=== PATIENT | female | born 1950 | race Caucasian/White ===

== ENCOUNTER 2019-05-09 21:23 | Observation (INO) | payer OTHER, SELFPAY ==
[2019-05-09 21:36] VITALS: BP 156/75; PULSE 80; RESP 20; TEMP 36.8; O2SAT 100; BMI 18.8
[2019-05-09] MEDS: ONDANSETRON 4 MG/2 ML INJ IV (21:59)
[2019-05-09] MEDS: KETOROLAC 60 MG/2 ML VIAL 15 MG IV (22:00)
[2019-05-09] MEDS: SODIUM CHLORIDE 0.9% 1,000 ML 150 ML IV (22:00)
[2019-05-09 22:04] LABS: Add Manual Diff / Slide Review NO; Basophils Absolute Auto 100 /uL (0-100); Basophils Percent Auto 0.7 % (0-2); Eosinophils Absolute Auto 100 /uL (0-450); Hematocrit 38.8 % (36-46); Lymphocytes Absolute Auto 900 /uL (1100-4500); Lymphocytes Percent Auto 10.4 % (25-40); Mean Corpuscular HGB Conc 33.6 % (30-36); Mean Corpuscular Hemoglobin 30.9 PG (26-34); Monocytes Absolute Auto 100 /uL (0-900); Monocytes Percent Auto 1.2 % (3-14); Neutrophils Absolute Auto 7700 /uL (1500-7000); Neutrophils Percent Auto 86.7 % (50-75); Platelet Count 226 X10^3/uL (150-400); Red Blood Cell Count 4.21 X10^6/uL (4.0-5.2); White Blood Cell Count 8.9 X10^3/uL (4.5-11.0)
[2019-05-09 22:07] VITALS: BP 134/78; PULSE 76; RESP 15; O2SAT 100
[2019-05-09 22:07] LABS: Alanine Aminotransferase 139 IU/L (9-52); Albumin 4.4 g/dL (3.5-5.0); Albumin Globulin Ratio 1.6 (1.0-2.8); Alkaline Phosphatase 162 U/L (38-126); Aspartate Aminotransferase 213 IU/L (14-36); BUN Creatinine Ratio 22.9 (6-22); Bilirubin Total 1.1 mg/dL (0.2-1.3); Blood Urea Nitrogen 16 mg/dL (7-17); Calcium 9.4 mg/dL (8.4-10.2); Carbon Dioxide 25 mmol/L (22-32); Chloride 103 mmol/L (98-107); Estimated Glomerular Filt Rate > 60.0 mL/min (>60); Globulin 2.8 g/dL (1.7-4.1); Glucose 140 mg/dL (80-110); HEMOLYSIS < 15 (0-50); Lipase 86 U/L (23-300); Potassium 3.5 mmol/L (3.4-5.1); Sodium 138 mmol/L (137-145); Total Protein 7.2 g/dL (6.3-8.2)
--- NOTE | 2019-05-09 23:17 | ED.ABDPAIN ---
HPI - Abdominal Pain General Chief Complaint: Abdominal Pain Stated Complaint: abdominal pain Time Seen by Provider: 05/09/19 23:14 Source: patient Mode of arrival: Ambulatory Limitations: no limitations History of Present Illness HPI narrative: Patient is a 69-year-old female who presents with epigastric pain and right upper quadrant pain. She says it started yesterday she has been feeling nauseous today. Pain has gotten worse. She has not had any fever or chills. She denies any diarrhea. Pain sometimes does radiate up into her chest. But mostly remains in her epigastric area on sometimes does go through to her back. Location: RUQ and epigastric Severity: moderate Radiation: back Migration to: no migration Related Data Home Medications Medication Instructions Recorded Confirmed fluvoxamine 150 mg PO DAILY 05/10/19 05/10/19 gabapentin 400 mg PO DAILY 05/10/19 05/10/19 pramipexole 0.5 mg PO DAILY 05/10/19 05/10/19 Allergies Allergy/AdvReac Type Severity Reaction Status Date / Time No Known Drug Allergies Allergy Verified 05/09/19 21:39 Review of Systems Review of Systems ROS Unobtainable: All systems reviewed & are unremarkable except as noted in HPI and below Constitutional Constitutional: Denies chills, Denies fever(s), Denies lethargy and Denies weakness Eyes Eyes: Denies change in vision, Denies eye discharge, Denies irritation and Denies loss of vision ENT Ears, Nose, Mouth, and Throat: Denies change in voice, Denies neck pain and Denies sore throat Cardiovascular Cardiovascular: Denies chest pain, Denies irregular heart rhythm, Denies lightheadedness, Denies palpitations, Denies dyspnea, Denies dyspnea on exertion and Denies orthopnea Respiratory Respiratory: Denies cough, Denies dyspnea, Denies dyspnea on exertion and Denies wheezing Gastrointestinal Gastrointestinal: Reports as per HPI Genitourinary Genitourinary: Denies hematuria, Denies flank pain, Denies urinary incontinence and Denies urinary urgency Musculoskeletal Musculoskeletal: Denies neck pain Integumentary/Breasts Skin/Breast: Denies pruritus, Denies erythema, Denies rash and Denies wounds Neurologic Neurologic: Denies loss of vision and Denies weakness Endocrine Endocrine: Denies palpitations Allergic/Immunologic Allergic/Immunologic: Denies wheezing [facility] Social History Smoking Status: Never smoker Social History Smoking Status: Never smoker Exam Initial Vital Signs Initial Vital Signs: Vital Signs Temperature 98.2 F 05/09/19 21:36 Pulse Rate 80 05/09/19 21:36 Respiratory Rate 20 05/09/19 21:36 Blood Pressure 156/75 H 05/09/19 21:36 Pulse Oximetry 100 05/09/19 21:36 GENERAL: Pleasant well-appearing female. HEENT: Head atraumatic,EOMI, pupils reactive, face symmetric CARDIOVASCULAR: Regular rate and rhythm without murmurs, rubs or gallops. RESPIRATORY: Breath sounds equal bilaterally, no wheezes rales or rhonchi. ABDOMEN: Soft, mild epigastric pain all positive right upper quadrant pain no guarding or rebound EXTREMITIES: Normal range of motion, no clubbing or edema. Neurovascularly intact NEUROLOGICAL: Alert and oriented x4.Normal gait and speech. Cranial nerves II through XII grossly intact. SKIN: Warm, dry, no laceration, no petechiae, no rashes or lesions. Course Orders Ordered: ED Orders 05/09/19 21:50 Complete Blood Count AUTO DIFF Stat Comprehensive Metabolic Panel Stat Lipase Stat Troponin & CK Cardiac Panel Stat 05/09/19 23:21 US abdomen limited Stat Sodium Chloride (Normal Saline 0.9%) 1,000 mls @ 150 mls/hr IV CONT ANIA Last Infusion: 05/10/19 01:01 Dose: 0 mls/hr Documented by: Admin: 05/09/19 22:00 Dose: 150 mls/hr Documented by: GREG Sodium Chloride (Normal Saline 0.9%) 1,000 mls @ 125 mls/hr IV CONT ANIA Last Infusion: 05/10/19 02:29 Dose: 125 mls/hr Documented by: Admin: 05/10/19 01:56 Dose: 125 mls/hr Documented by: CLARISSA Ampicillin Sodium/Sulbactam (Sodium 3 gm/ Sodium Chloride) 100 mls @ 100 mls/hr IV Q6H [facility] Morphine Sulfate (Morphine) 2 mg IV Q4HR PRN PRN Reason: Pain, Moderate (4-6) Ondansetron HCl (Zofran) 4 mg IV Q4HR PRN PRN Reason: Nausea And Vomiting Discontinued Medications Ketorolac Tromethamine (Toradol) 15 mg IV NOW ONE Stop: 05/09/19 21:55 Last Admin: 05/09/19 22:00 Dose: 15 mg Documented by: GREG Ondansetron HCl (Zofran) 4 mg IV NOW ONE Stop: 05/09/19 21:55 Last Admin: 05/09/19 21:59 Dose: 4 mg Documented by: GREG Consultations Consultation #1: Discussed case with surgery, Dr. Chaves, updated on patient's symptoms test results including and slightly dilated common bile duct 11 mm normal bilirubin elevated LFTs is normal lipase. States patient can be discharged home with close outpatient follow up in clinic next week or admission is for surgery tomorrow. Patient opted for admission and surgery tomorrow. He requested Unasyn NPO IV fluids pain medicine. Time: 00:48 Vital Signs Vital signs: Vital Signs - 8 hr 05/09/19 21:36 05/09/19 22:07 05/09/19 23:56 Temperature 98.2 F Pulse Rate 80 76 47 L Respiratory Rate 20 15 18 Blood Pressure 156/75 H Blood Pressure [Left Arm] 134/78 133/60 Pulse Oximetry 100 100 98 MDM - Abdominal Pain Lab Data Attestation: I reviewed the patient's lab results. Result diagrams: 05/09/19 21:50 05/09/19 21:50 Labs: Lab Results 05/09/19 05/09/19 05/09/19 Range/Units 21:50 21:50 21:50 WBC 8.9 (4.5-11.0) X10^3/uL RBC 4.21 (4.0-5.2) X10^6/uL Hgb 13.0 (12.0-16.0) g/dL Hct 38.8 (36-46) % MCV 92.0 (80-100) fL MCH 30.9 (26-34) PG MCHC 33.6 (30-36) % RDW 13.0 (11.6-14.8) % Plt Count 226 (150-400) X10^3/uL Neut % (Auto) 86.7 H (50-75) % Lymph % (Auto) 10.4 L (25-40) % [place] % (Auto) 1.2 L (3-14) % Eos % (Auto) 1.0 L (2-4) % Baso % (Auto) 0.7 (0-2) % Neut # (Auto) 7700 H (1955-8919) /uL Lymph # (Auto) 900 L (9455-8540) /uL [place] # (Auto) 100 (0-900) /uL Eos # (Auto) 100 (0-450) /uL Baso # (Auto) 100 (0-100) /uL Sodium 138 (137-145) mmol/L Potassium 3.5 (3.4-5.1) mmol/L Chloride 103 (98-107) mmol/L Carbon Dioxide 25 (22-32) mmol/L BUN 16 (7-17) mg/dL Creatinine 0.70 (0.52-1.04) mg/dL Estimated GFR > 60.0 (>60) mL/min BUN/Creatinine Ratio 22.9 H (6-22) Glucose 140 H (80-110) mg/dL Calcium 9.4 (8.4-10.2) mg/dL Total Bilirubin 1.1 (0.2-1.3) mg/dL AST 213 H (14-36) IU/L ALT 139 H (9-52) IU/L Alkaline Phosphatase 162 H (38-126) U/L Total Creatine Kinase 88 (30-135) U/L CK-MB (CK-2) TNP CK-MB (CK-2) Rel Index TNP Troponin I < 0.012 (0.01-0.034) ng/mL Total Protein 7.2 (6.3-8.2) g/dL Albumin 4.4 (3.5-5.0) g/dL Globulin 2.8 (1.7-4.1) g/dL Albumin/Globulin Ratio 1.6 (1.0-2.8) Lipase 86 (23-300) U/L Point of care testing: Urine Dip Bedside Urine Glucose Negative Bedside Urine Bilirubin - Negative Bedside Urine Ketone - Negative Urine Specific [place] 1.015 Bedside Urine Occult Blood - Negative Bedside Urine pH 6.5 Bedside Urine Protein - Negative Bedside Urine Urobilinogen - Negative Bedside Urine Nitrite - Negative Bedside Urine Leukocytes - Negative Esterase Imaging Data US - abdomen: Radiologist's impression: second shift supervisor report: No evidence for acute cholecystitis there is cholelithiasis present. Biliary ductal dilatation it as described 11 mm. No gross choledocholithiasis. Should clinical concern persists MRCP would be helpful for more definitive assessment. ECG Data Attestation: I personally reviewed and interpreted this ECG as follows: Prior ECG tracings: not available for review Interpretation: Normal sinus rhythm rate 81 p.r. interval [address] changes no T-wave inversions artifact noted. MDM Narrative Medical decision making narrative: Patient has normal bilirubin normal lipase the elevated LFTs with cholelithiasis on ultrasound. She has no leukocytosis or fever. Discussed case with surgery, agrees with admission for surgery tomorrow. Patient's pain overall significantly improved with Toradol. She was asking to go home however it did start to come back a little. Discharge Plan Departure Patient Disposition: Admitted as Observation Clinical Impression: Cholelithiasis Qualifiers: Cholelithiasis location: gallbladder Cholecystitis presence: without cholecystitis Biliary obstruction: without biliary obstruction Qualified Code(s): K80.20 - Calculus of gallbladder without cholecystitis without obstruction Discharge Date/Time: 05/10/19 02:31 Admit Date/Time: 05/10/19 01:41 Admit Provider: Severino Chaves
--- NOTE | 2019-05-09 23:21 | DI.US.S_ITS ---
PROCEDURE: US ABDOMEN LIMITED INDICATIONS: RIGHT UPPER QUADRANT PAIN TECHNIQUE: Real-time focused scanning was performed of the abdomen, with image documentation. COMPARISON: None. FINDINGS: Numerous tiny mobile gallstones are seen. The gallbladder wall is not thickened, measuring 3 mm or less. No specific pericholecystic fluid is seen. The sonographic Gonzalez sign is negative. Biliary dilatation is seen, with the common bile duct measuring 11 mm. The pancreas is not well-seen. The liver is normal in size and demonstrates no focal lesions. IMPRESSION: Numerous tiny mobile gallstones are seen, without additional sonographic signs of cholecystitis. Dilated common bile duct at 11 mm. As clinically appropriate, an MRCP could be considered for further evaluation (assuming that there is no contraindication to MRI). Note: No significant discrepancy from the preliminary report. Dictated by: Charles Correa M.D. on 05/10/2019 at 6:16 Approved by: Charles Correa M.D. on 05/10/2019 at 6:17
[2019-05-09 23:46] LABS: Creatine Kinase 88 U/L (30-135)
[2019-05-09 23:56] VITALS: BP 133/60; PULSE 47; RESP 18; O2SAT 98
[2019-05-09 23:59] LABS: Troponin I < 0.012 ng/mL (0.01-0.034)
[2019-05-10] VITALS (14 sets, daily range): BP systolic 90–160; BP diastolic 46–73; PULSE 55–98; RESP 14–20; TEMP 36.8–37.5; O2SAT 93–100; BMI 18.8
--- NOTE | 2019-05-10 | PATH_ITS ---
[facility] Accession Number: [id number] . 01 Material submitted: . gallbladder - GALLBLADDER . 01 Clinical history: . ABDOMINAL PAIN . 02 Diagnosis: Gallbladder, Cholecystectomy: Mild chronic cholecystitis, cholesterolosis, and cholelithiasis. MRV 05/14/2019 1332 Local . 02 Electronically signed: . Muna Wellington MD, Pathologist NPI- [id number] . 01 Gross description: . Received in formalin, labeled gallbladder, is an intact gallbladder (length-11.5 cm, diameter-3.5 cm) with green smooth and shiny serosa and a patent cystic duct. No lymph nodes are identified. The lumen contains green-brown viscous bile and multiple dark green gritty friable calculi (1.3 x 0.3 x 0.2 cm in aggregate). The mucosa is brown-green smooth and flat. The wall is up to 0.1 cm thick. No nodules, masses or lesions are identified. Section code: (A1) cystic duct resection margin and two serial sections from the body; (A2) two longitudinal sections from the fundus. ([id number]) /[facility] 05/12/2019 1908 Local . 02 Pathologist provided ICD-10: K81.1, K80.70 . 02 CPT . 732370 Performed at: 01 [facility] [address], [place], [place] [id number] MD Christiano Oden MD Phone: [phone] Performed at: 02 [facility] [address] [place], [place] [id number] MD Betsy Mercado MD Phone: [phone]
[2019-05-10] MEDS: SODIUM CHLORIDE 0.9% 1,000 ML 125 ML IV (01:56)
--- NOTE | 2019-05-10 03:04 | PC.NURSE ---
Bilingual Instructor Note: 0245: Admitted to acute care room 217 from ER. Pt is alert, oriented X3. IV is in place in rt AC with NS infusing at 125cc/hr. Pt states her pain level is 1/10 at this time. Pt is NPO.
[2019-05-10] MEDS: AMPICILLIN/SULBACTAM 3 GM 3 GM in SODIUM CHLORIDE 0.9% 100 ML IV (05:23)
--- NOTE | 2019-05-10 07:39 | PM.HP.1 ---
History of Present Illness History of Present Illness Date Patient Seen: 05/10/19 Time Patient Seen: 07:39 Chief complaint: abdominal pain Narrative: Patient comes emergency room round midnight with 2 day history of right subcostal pain nausea vomiting ultrasound confirmation of coli cystitis with cholelithiasis mild elevation of her LFTs. Normal bilirubin. White count not elevated. Patient History Social History Smoking Status: Never smoker Family & Social History Safety & Behavioral: Feels Safe in Current Yes Environment Tobacco & Substance use: Smoking Status Never smoker alcohol intake frequency 0-2 drinks per day Substance Use Type does not use Meds Home Medications and Allergies Home Medications Medication Instructions Recorded Confirmed Type fluvoxamine 150 mg PO DAILY 05/10/19 05/10/19 History gabapentin 400 mg PO DAILY 05/10/19 05/10/19 History pramipexole 0.5 mg PO DAILY 05/10/19 05/10/19 History Allergies Allergy/AdvReac Type Severity Reaction Status Date / Time No Known Drug Allergies Allergy Verified 05/09/19 21:39 Review of Systems Review of Systems ROS Unobtainable: All systems reviewed & are unremarkable except as noted in HPI and below Exam Vital Signs (past 8 hours): - 05/09/19 23:56 05/10/19 02:03 05/10/19 02:30 Temperature 99.5 F Pulse Rate 47 L 98 H 94 H Respiratory Rate 18 16 18 Blood Pressure 110/46 L Blood Pressure [Left Arm] 133/60 99/59 L Pulse Oximetry 98 97 97 Oxygen Delivery Method Room Air Oxygen Flow Rate 0 Narrative Exam Narrative: Temperature is 99.5? patient complaining of right subcostal pain. Nausea but no vomiting at this time. Lungs are clear with no rales or wheezes distant breath sounds Heart regular rhythm no murmur Abdomen not distended. She has right subcostal tenderness no masses palpable. No organomegaly. Objective Labs Result Diagrams: 05/09/19 21:50 05/09/19 21:50 Labs: Laboratory Results - last 24 hr 05/09/19 05/09/19 05/09/19 21:50 21:50 21:50 WBC 8.9 RBC 4.21 Hgb 13.0 Hct 38.8 MCV 92.0 MCH 30.9 MCHC 33.6 RDW 13.0 Plt Count 226 Neut % (Auto) 86.7 H Lymph % (Auto) 10.4 L [place] % (Auto) 1.2 L Eos % (Auto) 1.0 L Baso % (Auto) 0.7 Neut # (Auto) 7700 H Lymph # (Auto) 900 L [place] # (Auto) 100 Eos # (Auto) 100 Baso # (Auto) 100 Sodium 138 Potassium 3.5 Chloride 103 Carbon Dioxide 25 BUN 16 Creatinine 0.70 Estimated GFR > 60.0 BUN/Creatinine Ratio 22.9 H Glucose 140 H Calcium 9.4 Total Bilirubin 1.1 AST 213 H ALT 139 H Alkaline Phosphatase 162 H Total Creatine Kinase 88 CK-MB (CK-2) TNP CK-MB (CK-2) Rel Index TNP Troponin I < 0.012 Total Protein 7.2 Albumin 4.4 Globulin 2.8 Albumin/Globulin Ratio 1.6 Lipase 86 Assessment & Plan Assessment & Plan narrative: Patient with acute cholecystitis cholelithiasis admitted around midnight last night will have a laparoscopic cholecystectomy this Saturday morning. I have explained the nature of the procedure the patient and her the understand and have no further questions which are not answered.
[2019-05-10] MEDS: APREPITANT 40 MG CAPSULE PO (07:55)
[2019-05-10] MEDS: LACTATED RINGERS 1,000 ML 42 ML IV (07:55)
--- NOTE | 2019-05-10 07:56 | PC.NURSE ---
Patient reports she did not eat or drink anything overnight. No pain at this time. Signed consent with the surgeon and at bedside. Picked up by surgery team at this time.
--- NOTE | 2019-05-10 08:41 | SUR.OPER ---
Supine on padded OR bed, head on pillow, arms secured on padded arm boards at <90 degrees abduction, legs uncrossed, safety belt at thigh, tape over blanket over lower legs.
[2019-05-10] MEDS: BUPIVACAINE 0.5% W/ EPI (PF) VIAL 30 ML INJ (08:45)
[2019-05-10] MEDS: BACITRACIN OINT 0.9 GM PCKT 1 APPLIC TOP (08:46)
--- NOTE | 2019-05-10 08:50 | SUR.OPER ---
WEDDING BAND SECURED ON LEFT RING FINGER
--- NOTE | 2019-05-10 09:12 | PM.OP.1 ---
Operative Date/Time/Diagnoses Date of procedure: 05/10/19 Time of procedure: 09:13 Pre-op diagnosis: Acute on chronic cholecystitis with cholelithiasis Post-op diagnosis: same Procedure & Clinicians Procedure: Laparoscopic cholecystectomy Same procedure as scheduled: Yes Surgeon: Severino Chaves Click Yes if Unassisted: Yes Anesthesia Type: General Operative Notes Findings: The patient had any damages gallbladder with chronic inflammatory changes. The edematous changes were evidence of acute cholecystitis. Closure Type: primary Specimen(s): other (Gallbladder and stones) Estimated Blood Loss (mL): 50 Blood products transfused: none Procedure in detail: The patient was properly identified during surgical pause. Given a general endotracheal anesthetic prepped and draped sterile fashion exposure of the upper abdomen. 5 mm incision made to the right of the umbilicus using an Opti View direct vision port direct entry in the peritoneal cavities was achieved using the laparoscoped and there was no evidence of visceral injury. Pneumoperitoneum safely established. Three right subcostal ports were all placed under direct vision. The gallbladder was elevated it was edematous acutely inflamed with chronic adhesions from the right colon to the wall of the gallbladder. These adhesions were taken down bluntly with minimal bleeding. Gallbladder was then further elevated and the cholecystoduodenal ligament dissected and the critical view of Calot's triangle clearly showing cystic duct Calot's node cystic artery and the right hepatic artery. The cystic duct was closed with multiple clips divided leaving several with the patient there was no bile leak the cystic artery was closed with multiple clips divided leaving several with the patient there was no bleeding. Gallbladder was then elevated further. Dissection proceeded using the Bovie electric cautery dividing the edematous serosa and removing the gallbladder from the liver bed. There was meticulous hemostasis. Gallbladder and its contents removed. Operative site irrigated with a L of sterile saline aspirated dry there was no bleeding no bile leak. Trocars removed under direct vision there was no bleeding. Skin stapled sterile dressings applied procedures well tolerated. Complications: none Post-operative Condition: stable Disposition: PACU
--- NOTE | 2019-05-10 09:26 | SUR.PHASEI ---
0968 Pt arrived in sinus rhythm, converted to bigeminy, rhythm strip shown to Dr. Florez - no orders. Pt. now has converted back to sinus rhythm in the low 70's. Assymptomatic, also denies pain/nausea. Dr. Lugo spoke with patient.
--- NOTE | 2019-05-10 09:46 | SUR.PHASEI ---
0935 to room 217, bed down and locked, call light within reach, SCDs on. denies pain/nausea; report given, VSS, spouse at bedside. Continues to wear yellow ring/band. Dressings unchanged, belly remains soft. no questions/concerns.
--- NOTE | 2019-05-10 09:59 | PC.NURSE ---
Addendum entered by Mega Abreu R.N. 05/10/19 13:56: Patient assisted to walk in hallways, tolerated well, denies n/v, dizziness or lightheadedness, dressings remain intact. Patient noted some mild to moderate discomfort on right side and abdomen, medicated with percocet as ordered and patient tolerating well at this time. Smiling and conversant, tolerating liquids. Continue to monitor. Original Note: Patient arrived from PACU, axox3, VSS, denies pain. [address] to abdomen covered in gauze with tegaderm dressings, small spot of blood less than dime sized noted on far right dressing. Continue to monitor.
[2019-05-10] MEDS: OXYCODONE/ACETAMINOPHEN 5/325 TABLET 1 TAB PO (12:20)
[2019-05-10] MEDS: GABAPENTIN 300 MG CAPSULE PO (12:20)
--- NOTE | 2019-05-10 12:33 | CM.DANOTE ---
DCP: Case received, EMR reviewed and met with patient. Introduced self and role. , Cirilo, at bedside. Was able to obtain baseline health and activity level from patient. DCP assessment/template completed with information currently available. Patient is a 69 year old female who admitted early this morning to the care of the surgical team. PCP: Dr. Roe at [facility] Payer: confirmed; [employer]. Patient came to the hospital secondary to epigastric pain. Patient noted to have cholecystitis. Patient had a laparoscopic choleysectomy this morning. Met with patient after surgery, , Cirilo, in room. Patient alert and oriented. Lives in [place] with her , and is independent. P: DCP to continue to follow. Patient should be able to go home when she is medically stable. Bety Julian RN/Vest Maker
--- NOTE | 2019-05-10 14:19 | PM.DS.1 ---
History of Present Illness History of Present Illness Date Patient Seen: 05/10/19 Time Patient Seen: 14:19 Chief complaint: abdominal pain Narrative: Patient comes emergency room round midnight with 2 day history of right subcostal pain nausea vomiting ultrasound confirmation of coli cystitis with cholelithiasis mild elevation of her LFTs. Normal bilirubin. White count not elevated. Discharge Providers Provider Date of admission: 05/10/19 01:41 Discharge Date: 05/10/19 Discharge provider: Severino Chaves MD Summary Hospital Course Discharge Diagnosis: Acute on chronic cholecystitis with cholelithiasis Hospital Course: Patient was taken the operating theater this morning after being admitted in the middle night. She underwent laparoscopic cholecystectomy which was very well tolerated. She had acute on chronic cholecystitis with cholelithiasis. Since surgery today she has had minimal discomfort she is ambulating in the kc she is tolerating a diet and is having no nausea or vomiting. She is ready for discharge. She will resume her pre-admission medication no narcotics are prescribed. She will use Tylenol or ibuprofen for discomfort if she needs it. Status at Discharge Cognitive/behavioral status at discharge: oriented Functional status at discharge: independent ambulation Overall status at discharge: patient is back to baseline Time Spent with Patient Time spent: Less than 30 minutes Exam Vital Signs (past 8 hours): - 05/10/19 07:55 05/10/19 07:56 05/10/19 09:09 Temperature 98.8 F 98.8 F 98.3 F Pulse Rate 65 65 95 H Respiratory Rate 16 16 16 Blood Pressure 102/58 L 102/58 L 112/73 Pulse Oximetry 97 97 95 05/10/19 09:14 05/10/19 09:20 05/10/19 09:25 Temperature Pulse Rate 89 71 73 Respiratory Rate 14 14 20 Blood Pressure 115/63 90/58 L 125/69 Pulse Oximetry 97 95 100 05/10/19 09:30 05/10/19 09:47 05/10/19 10:24 Temperature 98.5 F 99.1 F Pulse Rate 74 69 70 Respiratory Rate 17 16 16 Blood Pressure 122/67 106/48 L 104/59 L Pulse Oximetry 100 96 93 05/10/19 10:45 05/10/19 11:34 05/10/19 11:45 Temperature 99 F 98.7 F Pulse Rate 57 L 55 L Respiratory Rate 16 16 Blood Pressure 98/54 L 160/62 H Pulse Oximetry 97 97 97 Oxygen Delivery Method Room Air Oxygen Flow Rate 2 Narrative Exam Narrative: Patient is resting comfortably in bed with absolutely no abdominal pain. Skin and sclerae are clear. She is afebrile. Abdomen is soft with minimal trocar site tenderness. Her dressings are dry and intact. Objective Labs Result Diagrams: 05/09/19 21:50 05/09/19 21:50 Labs: Laboratory Results - last 24 hr 05/09/19 05/09/19 05/09/19 21:50 21:50 21:50 WBC 8.9 RBC 4.21 Hgb 13.0 Hct 38.8 MCV 92.0 MCH 30.9 MCHC 33.6 RDW 13.0 Plt Count 226 Neut % (Auto) 86.7 H Lymph % (Auto) 10.4 L [place] % (Auto) 1.2 L Eos % (Auto) 1.0 L Baso % (Auto) 0.7 Neut # (Auto) 7700 H Lymph # (Auto) 900 L [place] # (Auto) 100 Eos # (Auto) 100 Baso # (Auto) 100 Sodium 138 Potassium 3.5 Chloride 103 Carbon Dioxide 25 BUN 16 Creatinine 0.70 Estimated GFR > 60.0 BUN/Creatinine Ratio 22.9 H Glucose 140 H Calcium 9.4 Total Bilirubin 1.1 AST 213 H ALT 139 H Alkaline Phosphatase 162 H Total Creatine Kinase 88 CK-MB (CK-2) TNP CK-MB (CK-2) Rel Index TNP Troponin I < 0.012 Total Protein 7.2 Albumin 4.4 Globulin 2.8 Albumin/Globulin Ratio 1.6 Lipase 86 Discharge Plan Discharge Plan Patient Disposition: Home Discharge Med Rec/Prescriptions Prescriptions: Continued gabapentin 400 mg capsule 400 mg PO DAILY RF: 0 pramipexole 0.5 mg tablet 0.5 mg PO DAILY RF: 0 fluvoxamine 100 mg tablet 150 mg PO DAILY RF: 0 Follow up/Referrals: Severino Chaves MD [Physician] - (call the offfice to have staple removal in about a week) Provider Discharge Instructions Diet: Diet as Tolerated Skin/Wound/Dressing Care Skin care: bathe normally, remove dressings in 2 days, redress as needed with bandaids Report to your healthcare provider any signs of infection, such as:: chills, fever, night sweats, increased pain, unusual drainage and unusual redness Visit Report/Discharge Packet Instructions: DI for Cholecystectomy Stand Alone Forms: Surgery Discharge Visit Report Forms: Patient Portal/API, Stroke Signs & Symptoms Discharge Data Attending Provider: Severino Chaves Admit Date/Time: 05/10/19 01:41
[2019-05-10] MEDS: KETOROLAC 30 MG/ML VIAL IV (14:51)
--- NOTE | 2019-05-10 15:37 | PC.NURSE ---
Patient given toradol as ordered and then IV removed, patient tolerated well. Dressings remain intact. Patient has no further questions or concerns and will call MD office tomorrow to ensure follow up schedule. Escorted out via wheelchair with all belongings to be discharged to home with .
== END 2019-05-10 15:15 | disposition home or self-care (01) ==
LOC: ED 05-10 00:52 → AC 05-10 01:42
PROVIDERS: Admitting Provider Surgery; Emergency Provider Emergency Medicine; Visit Provider Surgery
PROC: 0FT44ZZ Resection of Gallbladder, Percutaneous Endoscopic Approach (ICD-10-PCS; CPT 47562; principal; 2019-05-10 08:30)
DX: K80.12 Calculus of gallbladder with acute and chronic cholecystitis without obstruction (principal); R10.11 Right upper quadrant pain
CPT/HCPCS: 47562; 36415; 76705; 80053; 81003; 82550; 83690; 84484; 85025; 93005; 94762; 96361; 96365; 96375; 96376; 99284; 99285; G0378; J0295; J1100; J1885; J2250; J2405; J2704; J2710; J3010; J8501

== ENCOUNTER 2020-10-20 13:41 | Emergency (ER) | payer OTHER, SELFPAY ==
[2019-05-10 02:31] VITALS: BMI 18.8
[2020-10-20 13:49] VITALS: BP 139/77; RESP 24; TEMP 36.5; O2SAT 99
--- NOTE | 2020-10-20 14:21 | DI.RAD.S_ITS ---
PROCEDURE: XR CHEST 1V INDICATIONS: shortness of breath TECHNIQUE: One view of the chest was acquired. COMPARISON: None. FINDINGS: Surgical changes and devices: None. Lungs and pleura: Lungs are clear. No pleural effusions or pneumothorax. Mediastinum: Mediastinal contours appear normal. Heart size is normal. Bones and chest wall: No suspicious bony lesions. Overlying soft tissues appear unremarkable. IMPRESSION: No acute disease. Dictated by: Ankit Reese M.D. on 10/20/2020 at 15:48 Approved by: Ankit Reese M.D. on 10/20/2020 at 15:48
[2020-10-20 14:23] LABS: Add Manual Diff / Slide Review NO; Basophils Absolute Auto 100 /uL (0-100); Basophils Percent Auto 1.2 % (0-2); Eosinophils Absolute Auto 100 /uL (0-450); Eosinophils Percent Auto 1.1 % (2-4); Hematocrit 36.8 % (36-46); Hemoglobin 12.5 g/dL (12.0-16.0); Lymphocytes Absolute Auto 1700 /uL (1100-4500); Lymphocytes Percent Auto 28.1 % (25-40); Mean Corpuscular Hemoglobin 31.4 PG (26-34); Mean Corpuscular Volume 92.3 fL (80-100); Monocytes Absolute Auto 600 /uL (0-900); Monocytes Percent Auto 9.7 % (3-14); Neutrophils Absolute Auto 3600 /uL (1500-7000); Neutrophils Percent Auto 59.9 % (50-75); Platelet Count 274 X10^3/uL (150-400); Red Blood Cell Count 3.99 X10^6/uL (4.0-5.2); Red Cell Distribution Width 11.9 % (11.6-14.8)
[2020-10-20] MEDS: SODIUM CHLORIDE 0.9% 1,000 ML 250 ML IV (14:26)
[2020-10-20] MEDS: ONDANSETRON 4 MG/2 ML INJ IV (14:26)
[2020-10-20 14:30] LABS: INR 1.1 (0.9-1.3); Prothrombin Time 12.5 SECONDS (10.1-12.7)
[2020-10-20 14:33] LABS: PTT Partial Thromboplastin Tim 41 SECONDS (26.4-36.2)
[2020-10-20 14:46] LABS: Alanine Aminotransferase 21 IU/L (<35); Albumin 4.1 g/dL (3.5-5.0); Albumin Globulin Ratio 1.6 (1.0-2.8); Alkaline Phosphatase 62 U/L (38-126); Aspartate Aminotransferase 25 IU/L (14-36); Bilirubin Total 0.6 mg/dL (0.2-1.3); Blood Urea Nitrogen 17 mg/dL (7-17); Calcium 9.7 mg/dL (8.4-10.2); Carbon Dioxide 19 mmol/L (22-32); Chloride 106 mmol/L (98-107); Creatine Kinase 74 U/L (30-135); Estimated Glomerular Filt Rate > 60.0 mL/min (>60); Globulin 2.6 g/dL (1.7-4.1); Glucose 103 mg/dL (80-110); HEMOLYSIS < 15 (0-50); Lipase 42 U/L (23-300); Potassium 3.1 mmol/L (3.4-5.1); Sodium 137 mmol/L (137-145); Total Protein 6.7 g/dL (6.3-8.2)
[2020-10-20 14:56] LABS: NT-proBNP (BNP-Adult 18+) 254 pg/mL (<125)
[2020-10-20 14:57] LABS: Troponin I < 0.012 ng/mL (0.01-0.034)
--- NOTE | 2020-10-20 15:01 | ED.NAVMDI ---
HPI - Nausea/Vomiting/Diarrhea General Chief complaint: Nausea/Vomiting/Diarrhea Stated complaint: diarrhea,throwing up Time Seen by Provider: 10/20/20 14:19 Source: patient Mode of arrival: Ambulatory Limitations: no limitations History of Present Illness HPI Narrative: 70-year-old woman presents with nausea vomiting diarrhea along with dyspnea, the nausea and vomiting have been present for 48 hours.. She has had hot and cold flashes. Three episodes of emesis in the last 24 hours, similar frequency for diarrhea. Complains of no chest pain, palpitations or cough but has noted some right jaw pain. Related Data Home Medications Medication Instructions Recorded Confirmed fluvoxamine 150 mg PO DAILY 05/10/19 05/18/19 gabapentin 400 mg PO DAILY 05/10/19 05/18/19 pramipexole 0.5 mg PO DAILY 05/10/19 05/18/19 Allergies Allergy/AdvReac Type Severity Reaction Status Date / Time No Known Drug Allergies Allergy Verified 10/20/20 13:53 Review of Systems Review of Systems ROS Unobtainable: All systems reviewed & are unremarkable except as noted in HPI and below Patient History Surgical History History of cholecystectomy Social History Smoking Status: Never smoker Smoking Status: Never smoker alcohol intake frequency: 0-2 drinks per day Substance Use Type: does not use Exam Narrative Exam Narrative: General: Frail but in no acute distress. Able to give a complete and coherent history. Well-nourished well-developed HEENT: Moist mucous membranes, normal sclera with reactive pupils, Respiratory: Lungs are clear to auscultation, no wheezing no rales no rhonchi. Full and symmetrical air movement Cardiac: Regular rate and rhythm no murmurs no bruits Abdomen: Soft, nontender, good bowel tones, no flank pain Skin: Warm and dry, no rashes Neurologic: Grossly neurologically intact with no obvious asymmetries or abnormalities Extremities: No trauma, well perfused Psych: Cooperative, appropriate insight and affect Initial Vital Signs Initial Vital Signs: Vital Signs Temperature 97.7 F 10/20/20 13:49 Respiratory Rate 24 10/20/20 13:49 Blood Pressure 139/77 10/20/20 13:49 Pulse Oximetry 99 10/20/20 13:49 Course Orders Ordered: ED Orders 10/20/20 13:53 EKG-12 Lead Stat 10/20/20 14:16 Complete Blood Count AUTO DIFF Stat Comprehensive Metabolic Panel Stat Lipase Stat NT-proBNP (BNP-Adult 18+) Stat PTT [Partial Thromboplastin Time] Stat Prothrombin Time INR Stat Troponin & CK Cardiac Panel Stat 10/20/20 14:21 Chest [XR chest 1V] Stat 10/20/20 16:19 GI Panel (Film Array) Stat Sodium Chloride (Normal Saline 0.9%) 1,000 mls @ 250 mls/hr IV BOLUS ONE Stop: 10/20/20 18:19 Last Infusion: 10/20/20 16:35 Dose: 0 mls/hr Documented by: Infusion: 10/20/20 16:05 Dose: 999 mls/hr Documented by: Admin: 10/20/20 14:26 Dose: 250 mls/hr Documented by: NICHELLE Discontinued Medications Ondansetron HCl (Ondansetron 4 Mg/2 Ml Inj) 4 mg IV NOW ONE Stop: 10/20/20 13:54 Last Admin: 10/20/20 14:26 Dose: 4 mg Documented by: NICHELLE Pramipexole Dihydrochloride (Pramipexole 0.25 Mg Tablet) 0.5 mg PO NOW ONE Stop: 10/20/20 15:19 Last Admin: 10/20/20 15:43 Dose: 0.5 mg Documented by: JUNAID Vital Signs Vital signs: Vital Signs - 8 hr 10/20/20 13:49 10/20/20 16:17 10/20/20 17:00 Temperature 97.7 F Pulse Rate 67 75 Respiratory Rate 24 Blood Pressure 139/77 195/77 H Pulse Oximetry 99 98 100 10/20/20 17:30 10/20/20 17:51 10/20/20 18:00 Temperature Pulse Rate 67 57 L 74 Respiratory Rate Blood Pressure 150/66 H 139/66 Pulse Oximetry 97 94 98 MDM - Nausea/Vomiting/Diarrhea Medical Records Attestation: I reviewed the patient's medical records. Lab Data Attestation: I reviewed the patient's lab results. Result diagrams: 10/20/20 14:16 10/20/20 14:16 Labs: Lab Results 10/20/20 10/20/20 10/20/20 Range/Units 14:16 14:16 14:16 WBC 6.0 (4.5-11.0) X10^3/uL RBC 3.99 L (4.0-5.2) X10^6/uL Hgb 12.5 (12.0-16.0) g/dL Hct 36.8 (36-46) % MCV 92.3 (80-100) fL MCH 31.4 (26-34) PG MCHC 34.0 (30-36) % RDW 11.9 (11.6-14.8) % Plt Count 274 (150-400) X10^3/uL Neut % (Auto) 59.9 (50-75) % Lymph % (Auto) 28.1 (25-40) % [place] % (Auto) 9.7 (3-14) % Eos % (Auto) 1.1 L (2-4) % Baso % (Auto) 1.2 (0-2) % Neut # (Auto) 3600 (4973-8746) /uL Lymph # (Auto) 1700 (5568-6702) /uL [place] # (Auto) 600 (0-900) /uL Eos # (Auto) 100 (0-450) /uL Baso # (Auto) 100 (0-100) /uL PT (10.1-12.7) SECONDS INR (0.9-1.3) APTT (26.4-36.2) SECONDS Sodium 137 (137-145) mmol/L Potassium 3.1 L (3.4-5.1) mmol/L Chloride 106 (98-107) mmol/L Carbon Dioxide 19 L (22-32) mmol/L BUN 17 (7-17) mg/dL Creatinine 0.50 L (0.52-1.04) mg/dL Estimated GFR > 60.0 (>60) mL/min BUN/Creatinine Ratio 34.0 H (6-22) Glucose 103 (80-110) mg/dL Calcium 9.7 (8.4-10.2) mg/dL Total Bilirubin 0.6 (0.2-1.3) mg/dL AST 25 (14-36) IU/L ALT 21 (<35) IU/L Alkaline Phosphatase 62 (38-126) U/L Total Creatine Kinase 74 (30-135) U/L CK-MB (CK-2) TNP CK-MB (CK-2) Rel Index TNP Troponin I < 0.012 (0.01-0.034) ng/mL NT-Pro-B Natriuret Pep 254 H (<125) pg/mL Total Protein 6.7 (6.3-8.2) g/dL Albumin 4.1 (3.5-5.0) g/dL Globulin 2.6 (1.7-4.1) g/dL Albumin/Globulin Ratio 1.6 (1.0-2.8) Lipase (23-300) U/L 10/20/20 10/20/20 Range/Units 14:16 14:16 WBC (4.5-11.0) X10^3/uL RBC (4.0-5.2) X10^6/uL Hgb (12.0-16.0) g/dL Hct (36-46) % MCV (80-100) fL MCH (26-34) PG MCHC (30-36) % RDW (11.6-14.8) % Plt Count (150-400) X10^3/uL Neut % (Auto) (50-75) % Lymph % (Auto) (25-40) % [place] % (Auto) (3-14) % Eos % (Auto) (2-4) % Baso % (Auto) (0-2) % Neut # (Auto) (7534-8792) /uL Lymph # (Auto) (3426-6244) /uL [place] # (Auto) (0-900) /uL Eos # (Auto) (0-450) /uL Baso # (Auto) (0-100) /uL PT 12.5 (10.1-12.7) SECONDS INR 1.1 (0.9-1.3) APTT 41 H (26.4-36.2) SECONDS Sodium (137-145) mmol/L Potassium (3.4-5.1) mmol/L Chloride (98-107) mmol/L Carbon Dioxide (22-32) mmol/L BUN (7-17) mg/dL Creatinine (0.52-1.04) mg/dL Estimated GFR (>60) mL/min BUN/Creatinine Ratio (6-22) Glucose (80-110) mg/dL Calcium (8.4-10.2) mg/dL Total Bilirubin (0.2-1.3) mg/dL AST (14-36) IU/L ALT (<35) IU/L Alkaline Phosphatase (38-126) U/L Total Creatine Kinase (30-135) U/L CK-MB (CK-2) CK-MB (CK-2) Rel Index Troponin I (0.01-0.034) ng/mL NT-Pro-B Natriuret Pep (<125) pg/mL Total Protein (6.3-8.2) g/dL Albumin (3.5-5.0) g/dL Globulin (1.7-4.1) g/dL Albumin/Globulin Ratio (1.0-2.8) Lipase 42 (23-300) U/L Urine Dip Bedside Urine Glucose Negative Bedside Urine Bilirubin - Negative Bedside Urine Ketone + 15 Urine Specific [place] 1.015 Bedside Urine Occult Blood - Negative Bedside Urine pH 6.0 Bedside Urine Protein - Negative Bedside Urine Urobilinogen - Negative Bedside Urine Nitrite - Negative Bedside Urine Leukocytes - Negative Esterase Imaging Data Chest x-ray: Radiologist's Impression: FINDINGS: Surgical changes and devices: None. Lungs and pleura: Lungs are clear. No pleural effusions or pneumothorax. Mediastinum: Mediastinal contours appear normal. Heart size is normal. Bones and chest wall: No suspicious bony lesions. Overlying soft tissues appear unremarkable. IMPRESSION: No acute disease. Dictated by: Ankit Reese M.D. on 10/20/2020 at 15:48 MDM Narrative Medical decision making narrative: 70-year-old woman with 2 days of nausea and vomiting. With 2 L of fluid she is feeling better no more nausea or emesis or diarrhea since she has been in the emergency department. Slightly low potassium but otherwise every all else is quite reassuring with no evidence of renal failure. There is no evidence of acute bacterial infection. Suspect viral enteritis. At this point her abdominal exam is entirely benign with no suggestion of a surgical emergency. She will be discharged home with instructions to return if symptoms worsen. Discharge Plan Departure Patient Disposition: Home Clinical Impression: Vomiting and diarrhea Instructions: DI for Vomiting -- Adult Activity Restrictions/Additional Instructions: Thank you for coming in today Your lab work was reassuring. I suspect that you have a virus that is causing both vomiting and the diarrhea and likely will improve in the near future. I have given you a prescription for Zofran to use to help with the nausea to make sure that you are able to be viewed liquids down. Your very slightly low potassium will likely correct with the resolution of your diarrhea and ability to return to more normal eating. If you have worsening symptoms, please feel free to return to the emergency department. You had mentioned wanting to wean off your fluvoxamine. As we discussed, springtime is a reasonable time to try this. I would recommend a very slow taper to avoid any side effects from decreasing the dose. Consider alternating is a full pill with half a pill daily for 1-2 weeks until you have no symptoms. Decreased down to half a pill daily for 1-2 weeks until there was no symptoms and then decrease to 1 pill every other day for 1-2 weeks until you have no symptoms. If at any time during this taper you notice that your mood is getting worse then stop the taper that current dose and decide if perhaps you will need to reincrease. Please continue to try to contact her primary care physician for further guidance regarding this. I wish you the best Prescriptions: No Action gabapentin 400 mg capsule 400 mg PO DAILY RF: 0 pramipexole 0.5 mg tablet 0.5 mg PO DAILY RF: 0 fluvoxamine 100 mg tablet 150 mg PO DAILY RF: 0 Referrals: Shonna Roe, [Primary Care Provider] -
[2020-10-20] MEDS: PRAMIPEXOLE 0.25 MG TABLET 0.5 MG PO (15:43)
[2020-10-20 16:17] VITALS: BP 195/77; PULSE 67; O2SAT 98
[2020-10-20 17:00] VITALS: PULSE 75; O2SAT 100
[2020-10-20 17:30] VITALS: PULSE 67; O2SAT 97
[2020-10-20 17:51] VITALS: BP 150/66; PULSE 57; O2SAT 94
[2020-10-20 18:00] VITALS: BP 139/66; PULSE 74; O2SAT 98
[2020-10-20 18:20] LABS: Adenovirus F 40/41 Not Detected (Not Detect); Astrovirus Not Detected (Not Detect); Campylobacter Not Detected (Not Detect); Clostridium difficile toxin AB Not Detected (Not Detect); Cryptosporidium Not Detected (Not Detect); Cyclospora cayetanensis Not Detected (Not Detect); Entamoeba histolytica Not Detected (Not Detect); Enteroaggregative E.coli Not Detected (Not Detect); Enteropathogenic E.coli Not Detected (Not Detect); Enterotoxigenic E.coli It/st Not Detected (Not Detect); Giardia lamblia Not Detected (Not Detect); Norovirus GI/GII Not Detected (Not Detect); Plesiomonsa shigelloides Not Detected (Not Detect); Rotavirus A Not Detected (Not Detect); Salmonella Not Detected (Not Detect); Sapovirus Not Detected (Not Detect); Shiga-like toxin-prod E.coli Not Detected (Not Detect); Shigella/Enteroinvasive E.coli Not Detected (Not Detect); Vibrio Not Detected (Not Detect); Vibrio cholerae Not Detected (Not Detect); Yersinia enterocolitica Not Detected (Not Detect)
== END 2020-10-20 18:25 | disposition home or self-care (01) ==
PROVIDERS: Emergency Provider Emergency Medicine; PCP Family Medicine
DX: R11.2 Nausea with vomiting, unspecified (principal)
CPT/HCPCS: 36415; 71045; 80053; 81003; 82550; 83690; 83880; 84484; 85025; 85610; 85730; 87507; 93005; 93010; 96361; 96374; 99284; J2405

== ENCOUNTER 2020-12-10 01:00 | Emergency (ER) | payer OTHER, SELFPAY ==
[2019-05-10 02:31] VITALS: BMI 18.8
[2020-12-10 01:05] VITALS: BP 135/84; PULSE 71; RESP 18; TEMP 36.1; O2SAT 100; BMI 17.1
--- NOTE | 2020-12-10 01:09 | ED.GENADULT ---
HPI - General Adult General Chief complaint: Nausea/Vomiting/Diarrhea Stated complaint: food poisoning Time Seen by Provider: 12/10/20 01:02 Source: patient Mode of arrival: Ambulatory Limitations: no limitations History of Present Illness HPI narrative: Patient is a 70-year-old female who is here for evaluation of several hours of nausea vomiting and diarrhea. She stated that she did eat out for dinner last evening I was several hours after this that she developed all of her symptoms. Her who is with her here in the emergency department 8 at the same restaurant but not necessarily the same food and does not have any symptoms. She has not tried anything for symptoms prior to arrival. She did have similar nausea vomiting issues several months ago and has had some workup since then is scheduled for a upper endoscopy and colonoscopy next week. Related Data Home Medications Medication Instructions Recorded Confirmed fluvoxamine 150 mg PO DAILY 05/10/19 05/18/19 gabapentin 400 mg PO DAILY 05/10/19 05/18/19 pramipexole 0.5 mg PO DAILY 05/10/19 05/18/19 Previous Rx's Medication Instructions Recorded ondansetron 4 mg PO Q6H PRN #14 tab 10/20/20 Allergies Allergy/AdvReac Type Severity Reaction Status Date / Time No Known Drug Allergies Allergy Verified 10/20/20 13:53 Review of Systems Constitutional Constitutional: Denies fever(s) Eyes Eyes: Reports system reviewed and no additional complaints, except as documented ENT Comments: Jaw pain Cardiovascular Cardiovascular: Denies chest pain and Reports dyspnea (Associated with the vomiting and not feeling well) Respiratory Respiratory: Reports dyspnea (Associated with the vomiting and not feeling well) Gastrointestinal Gastrointestinal: Reports abdominal pain, Reports diarrhea, Reports nausea and Reports vomiting Genitourinary Genitourinary: Reports system reviewed and no additional complaints, except as documented Musculoskeletal Musculoskeletal: Reports back pain (Lower back pain) Integumentary/Breasts Skin/Breast: Reports system reviewed and no additional complaints, except as documented Neurologic Neurologic: Reports system reviewed and no additional complaints, except as documented Psychiatric Psychiatric: Reports system reviewed and no additional complaints, except as documented Endocrine Endocrine: Reports system reviewed and no additional complaints, except as documented Hematologic/Lymphatic On Anticoagulants: No Allergic/Immunologic Allergic/Immunologic: Reports system reviewed and no additional complaints, except as documented Patient History Medical History Cholelithiasis Surgical History History of cholecystectomy Social History Smoking Status: Never smoker Smoking Status: Never smoker alcohol intake frequency: 0-2 drinks per day Substance Use Type: does not use Exam Initial Vital Signs Initial Vital Signs: Vital Signs Temperature 97 F L 12/10/20 01:05 Pulse Rate 71 12/10/20 01:05 Respiratory Rate 18 12/10/20 01:05 Blood Pressure 135/84 12/10/20 01:05 Pulse Oximetry 100 12/10/20 01:05 Const General: cooperative Limitations: mental status not altered HENMT Head: normal to inspection and normocephalic Eyes General: appearance normal, both eyes and all related structures Chest Chest: No tenderness Resp Effort & Inspection: normal respiratory effort Auscultation: clear to auscultation bilaterally Cardio Rate: regular rate Rhythm: regular rhythm GI Inspection: non-distended Palpation: soft and No tender Back/Spine/Pelvis Thoracic/Lumbar Spine: paraspinal tenderness (Lumbar region) and No thoracic spinal tenderness Skin Lesions: no lesions Rashes: no rashes Neuro General: patient alert and patient awake Cognition: normal cognition Speech: speech normal Extrem General: normal to inspection and capillary refill normal Psych Appearance: grossly normal and well kempt Scores GCS Vanda coma scale eye opening: Spontaneous [place] coma scale verbal response: Orientated [place] coma scale motor response: Obey commands Vanda coma scale total score: 15 Course Orders Ordered: ED Orders 12/10/20 01:13 Complete Blood Count AUTO DIFF Stat Comprehensive Metabolic Panel Stat Lipase Stat Troponin & CK Cardiac Panel Stat 12/10/20 01:50 EKG-12 Lead Stat Ondansetron HCl (Ondansetron 4 Mg Odt Prepack) 1 bottle MISC SEEINSTR ONE Stop: 12/10/20 03:21 Discontinued Medications Sodium Chloride (Normal Saline 0.9%) 1,000 mls @ 1,000 mls/hr IV BOLUS ONE Stop: 12/10/20 02:08 Last Infusion: 12/10/20 03:10 Dose: 0 mls/hr Documented by: Admin: 12/10/20 01:23 Dose: 1,000 mls/hr Documented by: SISMA Ketorolac Tromethamine (Ketorolac 30 Mg/Ml Vial) 30 mg IV NOW ONE Stop: 12/10/20 01:37 Last Admin: 12/10/20 02:05 Dose: 30 mg Documented by: BRIAN Ondansetron HCl (Ondansetron 4 Mg/2 Ml Inj) 4 mg IV NOW ONE Stop: 12/10/20 01:10 Last Admin: 12/10/20 01:25 Dose: 4 mg Documented by: [email or web address] Vital Signs Vital signs: Vital Signs - 8 hr 12/10/20 01:05 Temperature 97 F L Pulse Rate 71 Respiratory Rate 18 Blood Pressure 135/84 Pulse Oximetry 100 Medical Decision Making Lab Data Lab results reviewed: Yes I reviewed the patient's lab results. Result diagrams: 12/10/20 01:13 12/10/20 01:13 Labs: Lab Results 12/10/20 12/10/20 12/10/20 Range/Units 01:13 01:13 01:13 WBC 15.1 H (4.5-11.0) X10^3/uL RBC 4.52 (4.0-5.2) X10^6/uL Hgb 13.6 (12.0-16.0) g/dL Hct 41.8 (36-46) % MCV 92.5 (80-100) fL MCH 30.2 (26-34) PG MCHC 32.6 (30-36) % RDW 12.3 (11.6-14.8) % Plt Count 267 (150-400) X10^3/uL Neut % (Auto) 80.7 H (50-75) % Lymph % (Auto) 12.8 L (25-40) % [place] % (Auto) 5.2 (3-14) % Eos % (Auto) 0.7 L (2-4) % Baso % (Auto) 0.6 (0-2) % Neut # (Auto) 98108 H (2985-4643) /uL Lymph # (Auto) 1900 (9882-7400) /uL [place] # (Auto) 800 (0-900) /uL Eos # (Auto) 100 (0-450) /uL Baso # (Auto) 100 (0-100) /uL Sodium 136 L (137-145) mmol/L Potassium 3.7 (3.4-5.1) mmol/L Chloride 104 (98-107) mmol/L Carbon Dioxide 22 (22-32) mmol/L BUN 27 H (7-17) mg/dL Creatinine 0.51 L (0.52-1.04) mg/dL Estimated GFR > 60.0 (>60) mL/min BUN/Creatinine Ratio 52.9 H (6-22) Glucose 137 H (80-110) mg/dL Calcium 10.0 (8.4-10.2) mg/dL Total Bilirubin 0.6 (0.2-1.3) mg/dL AST 35 (14-36) IU/L ALT 33 (<35) IU/L Alkaline Phosphatase 64 (38-126) U/L Total Creatine Kinase 64 (30-135) U/L CK-MB (CK-2) TNP CK-MB (CK-2) Rel Index TNP Troponin I < 0.012 (0.01-0.034) ng/mL Total Protein 7.5 (6.3-8.2) g/dL Albumin 4.7 (3.5-5.0) g/dL Globulin 2.8 (1.7-4.1) g/dL Albumin/Globulin Ratio 1.7 (1.0-2.8) Lipase 107 (23-300) U/L ECG Data Attestation: I personally reviewed and interpreted this ECG as follows: Prior ECG tracings: not available for review Interpretation: Sinus rhythm Ventricular rate is 78 Normal axis Normal QRS Normal QTC No ST T wave changes MDM Narrative Medical decision making narrative: Patient's back pain is in her lower back. She has had this in the past. Is also having jaw pain however no chest pain in her EKG is unremarkable in her troponin is negative. I have low suspicion for ACS. She does have a very benign abdominal exam and I have low suspicion for surgical pathology. She felt much better after the medications provided for her here in the emergency department along with the fluids. She was able to tolerate oral intake. She is afebrile. Does have leukocytosis but I suspect that this is related to her vomiting. No indication for antibiotics. I feel we can hold on radiologic studies. Will send home with nausea medication. She was given return precautions and follow-up instructions. She expressed understanding and agreement. Discharge Plan Departure Patient Disposition: Home Clinical Impression: Nausea, Vomiting, and Diarrhea Instructions: Diarrhea, Nausea and Vomiting-Adult Activity Restrictions/Additional Instructions: Recommend that you increase your fluid intake but drinking small amounts of fluid over longer periods of time. Take all of your medications as directed. Use the nausea medication as needed. Contact your primary provider for follow-up. Return to the emergency department for any new or worsening symptoms Prescriptions: No Action gabapentin 400 mg capsule 400 mg PO DAILY RF: 0 pramipexole 0.5 mg tablet 0.5 mg PO DAILY RF: 0 fluvoxamine 100 mg tablet 150 mg PO DAILY RF: 0 ondansetron 4 mg tablet,disintegrating 4 mg PO Q6H PRN (Reason: nausea and vomiting) Qty: 14 RF: 0 Referrals: Shonna Roe DO [Primary Care Provider] -
[2020-12-10 01:21] LABS: Add Manual Diff / Slide Review NO; Basophils Absolute Auto 100 /uL (0-100); Basophils Percent Auto 0.6 % (0-2); Eosinophils Absolute Auto 100 /uL (0-450); Eosinophils Percent Auto 0.7 % (2-4); Hematocrit 41.8 % (36-46); Hemoglobin 13.6 g/dL (12.0-16.0); Lymphocytes Absolute Auto 1900 /uL (1100-4500); Lymphocytes Percent Auto 12.8 % (25-40); Mean Corpuscular HGB Conc 32.6 % (30-36); Mean Corpuscular Hemoglobin 30.2 PG (26-34); Mean Corpuscular Volume 92.5 fL (80-100); Monocytes Absolute Auto 800 /uL (0-900); Monocytes Percent Auto 5.2 % (3-14); Neutrophils Absolute Auto 12200 /uL (1500-7000); Neutrophils Percent Auto 80.7 % (50-75); Platelet Count 267 X10^3/uL (150-400); Red Blood Cell Count 4.52 X10^6/uL (4.0-5.2); Red Cell Distribution Width 12.3 % (11.6-14.8); White Blood Cell Count 15.1 X10^3/uL (4.5-11.0)
[2020-12-10] MEDS: SODIUM CHLORIDE 0.9% 1,000 ML 1000 ML IV (01:23)
[2020-12-10] MEDS: ONDANSETRON 4 MG/2 ML INJ IV (01:25)
[2020-12-10 01:32] LABS: Alanine Aminotransferase 33 IU/L (<35); Albumin 4.7 g/dL (3.5-5.0); Albumin Globulin Ratio 1.7 (1.0-2.8); Alkaline Phosphatase 64 U/L (38-126); Aspartate Aminotransferase 35 IU/L (14-36); BUN Creatinine Ratio 52.9 (6-22); Bilirubin Total 0.6 mg/dL (0.2-1.3); Blood Urea Nitrogen 27 mg/dL (7-17); Carbon Dioxide 22 mmol/L (22-32); Chloride 104 mmol/L (98-107); Estimated Glomerular Filt Rate > 60.0 mL/min (>60); Globulin 2.8 g/dL (1.7-4.1); Glucose 137 mg/dL (80-110); HEMOLYSIS < 15 (0-50); Lipase 107 U/L (23-300); Potassium 3.7 mmol/L (3.4-5.1); Sodium 136 mmol/L (137-145); Total Protein 7.5 g/dL (6.3-8.2)
[2020-12-10 01:50] LABS: Creatine Kinase 64 U/L (30-135)
[2020-12-10 02:03] LABS: Troponin I < 0.012 ng/mL (0.01-0.034)
[2020-12-10] MEDS: KETOROLAC 30 MG/ML VIAL IV (02:05)
[2020-12-10 02:07] VITALS: PULSE 79; O2SAT 100
[2020-12-10 02:08] VITALS: BP 130/72; PULSE 81; O2SAT 100
[2020-12-10 02:30] VITALS: BP 124/67; PULSE 82; O2SAT 97
[2020-12-10 03:01] VITALS: PULSE 82; O2SAT 98
[2020-12-10] MEDS: ONDANSETRON 4 MG ODT PREPACK 1 BOTTLE MISC (03:29)
== END 2020-12-10 03:34 | disposition home or self-care (01) ==
PROVIDERS: Emergency Provider Emergency Medicine; PCP Family Medicine
DX: R11.2 Nausea with vomiting, unspecified (principal); R19.7 Diarrhea, unspecified; R10.9 Unspecified abdominal pain; M54.5 Low back pain
CPT/HCPCS: 36415; 80053; 82550; 83690; 84484; 85025; 93005; 93010; 96361; 96374; 96375; 99284; J1885; J2405